=== PATIENT | male | born 1940 | race African-American/Black ===

== ENCOUNTER 2019-04-07 10:45 | Inpatient (IN) | payer MEDICARE ==
[2019-04-07 11:46] VITALS: BP 170/74
[2019-04-07] MEDS ORDERED: Magnesium Hydroxide (MOM) 30 mL UDC PO PRN (11:48)
[2019-04-07] MEDS ORDERED: Maalox 30 mL Cup PO PRN (11:48)
--- NOTE | 2019-04-07 22:35 | Psychiatric Evaluation ---
DATE OF SERVICE: 04/07/2019 IDENTIFYING DATA: The patient is a 79-year-old -[place] male, living by himself. Information obtained by directly interviewing the patient as well as reviewing the admission papers and they are reliable. JUSTIFICATION OF HOSPITALIZATION: The patient is a 5150 as a danger to self and being gravely disabled. HISTORY OF PRESENT ILLNESS: Per the information obtained, the patient has been brought to the [facility], patient is reported to have been diagnosed as schizophrenia and had been on Haldol, but is noncompliant to the medication. The patient is reported to have been diagnosed to have hypertension, hyperlipidemia, but is not willing to comply with the treatment. The patient has been getting easily agitated, confused, and the slab depiler operator has mentioned that the patient has been going down and wanted the patient to be hospitalized for stabilization. PAST PSYCHIATRIC HISTORY: Details are not known. MEDICAL HISTORY: Physical examination is requested by Dr. Branch. SUBSTANCE ABUSE HISTORY: None. PHYSICAL OR SEXUAL ABUSE HISTORY: None. LEGAL PROBLEMS: None at this time. MENTAL STATUS EXAMINATION: The patient is a 79-year-old, looking his stated age, superficially cooperative. Eye contact is poor. Mood is noted to be irritable. Affect is constricted. Insight and judgment at this time are noted to be very much impaired. Impulse control is noted to be poor. The patient is getting easily agitated. The patient's coping skills are noted to be very poor. The patient has paranoid delusions, but denies any command hallucinations. Attention span and concentration noted to be poor. Short and long-term are noted to be poor. The patient's behavior is equally danger to self at this time and the patient is also gravely disabled. DIAGNOSES: AXIS I: Schizophrenia, chronic, paranoid type. AXIS II: None. AXIS III: As per Dr. Branch. IMMEDIATE TREATMENT PLAN: The patient is going to be observed on inpatient unit, provided with supportive psychotherapy. The patient is going to be closely monitored. Once stabilized, the patient is going to be discharged to [facility] to be followed up on an outpatient basis. JOB# [id number]
--- NOTE | 2019-04-07 22:38 | History & Physical ---
ADMIT DATE: 04/07/2019 HISTORY OF PRESENT ILLNESS: The patient is a 79-year-old male with long history of dementia, degenerative joint disease, admitted to [facility] under Dr. Bowen's service. No fever, no chills, no fever, no chest pain, no shortness of breath. PAST MEDICAL HISTORY: Significant for dementia, psychosis and degenerative joint disease. PAST SURGICAL HISTORY: No recent surgery. ALLERGIES: None. MEDICATIONS: Follow admission reconciliation. SOCIAL HISTORY: No smoking, no alcohol, no drug. FAMILY HISTORY: Noncontributory. REVIEW OF SYSTEMS: RENAL SYSTEM: No history of chronic renal disorder. CARDIOVASCULAR SYSTEM: No coronary artery disease. ENDOCRINE SYSTEM: No diabetes or thyroid problem. GASTROINTESTINAL SYSTEM: No upper or lower gastrointestinal bleed. NEUROLOGICAL SYSTEM: No seizure disorder. SKELETOMUSCULAR SYSTEM: No muscular dystrophy. HEMATOLOGICAL SYSTEM: No bleeding tendencies. RESPIRATORY SYSTEM: No asthma. GENITOURINARY: No dysuria or hematuria. PHYSICAL EXAMINATION: GENERAL: He is awake, alert, not coherent. VITAL SIGNS: Temperature is 96.5, heart rate 85, blood pressure 156/77. HEENT: Normocephalic. Pupils reactive to light and accommodation. Sclerae clear. NECK: Supple. Negative for lymphadenopathy, JVD or bruit. CHEST: Entry of air bilaterally normal. No rhonchi or wheezing. HEART: S1, S2 normal. No gallop rhythm. ABDOMEN: Soft, bowel sounds positive. EXTREMITIES: No edema. NEUROLOGIC: Awake, not coherent. No focal muscle deficits. Cranial nerves 2-12 are intact. ASSESSMENT: 1. Hypertension. 2. Degenerative joint disease. 3. Dementia. 4. Psychosis. PLAN: The patient admitted to the hospital under Dr. Bowen's service. Medical problems addressed during hospitalization is psychosis. Medical problems addressed at discharge are hypertension, dementia, degenerative joint disease. The patient is medically stable for activity. Thank you, Dr. Bowen, for asking me to see your patient. The patient will follow up with primary physician upon discharge. The patient is a full code. JOB# [id number]
[2019-04-08] MEDS: Multivitamin Tab PO SCH (09:40)
--- NOTE | 2019-04-08 21:03 | Internal Medicine Prog Note ---
Internal Medicine Subjective - Subjective Service Date: 04/08/19 Patient seen and examined:: with staff (HE IS CONFUSED) Patient is:: awake, non-verbal, in bed, confused Per staff patient has:: no adverse event Internal Medicine Objective - Physical Exam Vitals and I&O: Vital Signs Temp 98.1 F 04/08/19 19:56 Pulse 78 04/08/19 19:56 Resp 20 04/08/19 19:56 BP 111/54 04/08/19 19:56 Pulse Ox 97 04/08/19 19:56 Intake & Output 04/08/19 04/08/19 04/09/19 06:59 18:59 06:59 Intake Total 240 960 240 Balance 240 960 240 Intake: Oral 240 960 240 Other: # Voids 2 4 1 # Bowel Movements 0 0 Active Medications: Current Medications Acetaminophen (Tylenol) 650 mg PO Q4HR PRN PRN Reason: Mild Pain (Scale 1-3) Stop: 06/06/19 11:47 Acetaminophen (Tylenol) 650 mg PO Q4H PRN PRN Reason: TEMP ABOVE 100 Stop: 06/06/19 12:35 Al Hydrox/Mg Hydrox/Simethicone (Maalox) 30 ml PO Q4HR PRN PRN Reason: GI DISTRESS Stop: 06/06/19 11:47 Haloperidol (Haldol) 0.5 mg PO BID VALENTÍN; Protocol Stop: 06/07/19 08:59 Last Admin: 04/08/19 16:21 Dose: 0.5 mg Lorazepam (Ativan) 0.5 mg PO Q6HR PRN; Protocol PRN Reason: Anxiety Stop: 06/06/19 11:58 Last Admin: 04/07/19 21:29 Dose: 0.5 mg Magnesium Hydroxide (Milk Of Magnesia) 30 ml PO HS PRN PRN Reason: Constipation Multivitamins/Vitamin C (Theragran) 1 tab PO DAILY VALENTÍN Stop: 06/07/19 08:59 Last Admin: 04/08/19 09:40 Dose: 1 tab Zolpidem Tartrate (Ambien) 5 mg PO HS PRN PRN Reason: Insomnia Stop: 06/06/19 11:47 Last Admin: 04/08/19 20:31 Dose: 5 mg General: demented HEENT: NC/AT, PERRLA, EOMI, anicteric sclerae, throat clear Neck: Supple, No JVD, No thyromegaly, +2 carotid pulse wo bruit, No LAD Lungs: CTAB Cardiovascular: RRR, Normal S1, Normal S2, without murmur Abdomen: soft, non-tender, non-distended Neurological: no change Internal Medicine Assmt/Plan - Assessment Assessment: 1.HTN. 2.DJD. 3.DEMENTIA. 4.PSYCHOSIS - Plan Plan: CONTINUE ON CURRENT MEDICATION AND DIET
[2019-04-09] MEDS: Multivitamin Tab PO SCH (08:44)
--- NOTE | 2019-04-09 09:20 | Progress Notes ---
DATE: 04/08/2019 SUBJECTIVE: Staff was spoken to. The patient is interviewed. Mood is noted to be irritable. Affect is constricted. Coping skills are noted to be still poor. The patient has been having difficult time to cope with the stress. The patient is confused and has both short-term as well as long-term memory problems. No side effects to the medications are noted. The patient is currently on haloperidol 0.5 mg twice a day and is able to tolerate the medication. ASSESSMENT: The patient is still paranoid and impulsive. PLAN: To continue the patient with the supportive therapy and followup. JOB# [id number]
--- NOTE | 2019-04-09 20:55 | General Progress Note ---
Subjective - Review of Systems Service Date: 04/09/19 Subjective: resting comfortably no distress Objective - Physical Exam Vitals and I&O: Vital Signs Temp 97.5 F 04/09/19 20:04 Pulse 71 04/09/19 20:04 Resp 20 04/09/19 20:04 BP 112/53 04/09/19 20:04 Pulse Ox 97 04/09/19 20:04 Intake & Output 04/09/19 04/09/19 04/10/19 06:59 18:59 06:59 Intake Total 360 240 Balance 360 240 Intake: Oral 360 240 Other: # Voids 1 2 # Bowel Movements 0 Active Medications: Current Medications Acetaminophen (Tylenol) 650 mg PO Q4HR PRN PRN Reason: Mild Pain (Scale 1-3) Stop: 06/06/19 11:47 Acetaminophen (Tylenol) 650 mg PO Q4H PRN PRN Reason: TEMP ABOVE 100 Stop: 06/06/19 12:35 Al Hydrox/Mg Hydrox/Simethicone (Maalox) 30 ml PO Q4HR PRN PRN Reason: GI DISTRESS Stop: 06/06/19 11:47 Haloperidol (Haldol) 0.5 mg PO BID VALENTÍN; Protocol Stop: 06/07/19 08:59 Last Admin: 04/09/19 16:17 Dose: 0.5 mg Lorazepam (Ativan) 0.5 mg PO Q6HR PRN; Protocol PRN Reason: Anxiety Stop: 06/06/19 11:58 Last Admin: 04/09/19 10:49 Dose: 0.5 mg Magnesium Hydroxide (Milk Of Magnesia) 30 ml PO HS PRN PRN Reason: Constipation Multivitamins/Vitamin C (Theragran) 1 tab PO DAILY VALENTÍN Stop: 06/07/19 08:59 Last Admin: 04/09/19 08:44 Dose: 1 tab Zolpidem Tartrate (Ambien) 5 mg PO HS PRN PRN Reason: Insomnia Stop: 06/06/19 11:47 Last Admin: 04/09/19 20:43 Dose: 5 mg General: No acute distress HEENT: PERRLA, EOMI Neck: Supple, JVD, Thyromegaly Cardiovascular: Regular rate, Normal S1, Normal S2 Lungs: Clear to auscultation Abdomen: Bowel sounds, Soft Assessment/Plan - Assessment Assessment: 1.HTN. 2.DJD. 3.DEMENTIA. 4.PSYCHOSIS - Plan Plan: continue current treatment
--- NOTE | 2019-04-09 22:59 | Progress Notes ---
DATE: 04/09/2019 SUBJECTIVE: Staff was spoken to. The patient is interviewed. Mood is noted to be irritable. Affect is constricted. The patient is very confused and has been plugging the toilets with too much of the issue. The patient has no insight into his illness. The patient needs to be redirected. The patient is getting easily frustrated and angry. The patient is currently placed on the haloperidol, which she is getting at 0.5 mg b.i.d. PLAN: To continue the patient with his current medications and follow up with the supportive therapy. JOB# [id number]
[2019-04-10] MEDS: Multivitamin Tab PO SCH (08:45)
--- NOTE | 2019-04-10 13:59 | General Progress Note ---
Subjective - Review of Systems Service Date: 04/10/19 Subjective: resting comfortably no distress Objective - Physical Exam Vitals and I&O: Vital Signs Temp 97.2 F 04/10/19 05:48 Pulse 68 04/10/19 05:48 Resp 18 04/10/19 05:48 BP 147/73 04/10/19 05:48 Pulse Ox 98 04/10/19 05:48 Intake & Output 04/09/19 04/10/19 04/10/19 18:59 06:59 18:59 Intake Total 240 Balance 240 Intake: Oral 240 Other: # Voids 2 Active Medications: Current Medications Acetaminophen (Tylenol) 650 mg PO Q4HR PRN PRN Reason: Mild Pain (Scale 1-3) Stop: 06/06/19 11:47 Acetaminophen (Tylenol) 650 mg PO Q4H PRN PRN Reason: TEMP ABOVE 100 Stop: 06/06/19 12:35 Al Hydrox/Mg Hydrox/Simethicone (Maalox) 30 ml PO Q4HR PRN PRN Reason: GI DISTRESS Stop: 06/06/19 11:47 Haloperidol (Haldol) 0.5 mg PO BID VALENTÍN; Protocol Stop: 06/07/19 08:59 Last Admin: 04/10/19 08:44 Dose: 0.5 mg Lorazepam (Ativan) 0.5 mg PO Q6HR PRN; Protocol PRN Reason: Anxiety Stop: 06/06/19 11:58 Last Admin: 04/09/19 10:49 Dose: 0.5 mg Magnesium Hydroxide (Milk Of Magnesia) 30 ml PO HS PRN PRN Reason: Constipation Multivitamins/Vitamin C (Theragran) 1 tab PO DAILY VALENTÍN Stop: 06/07/19 08:59 Last Admin: 04/10/19 08:45 Dose: 1 tab Zolpidem Tartrate (Ambien) 5 mg PO HS PRN PRN Reason: Insomnia Stop: 06/06/19 11:47 Last Admin: 04/09/19 20:43 Dose: 5 mg General: No acute distress HEENT: PERRLA, EOMI Neck: Supple, JVD, Thyromegaly Cardiovascular: Regular rate, Normal S1, Normal S2 Lungs: Clear to auscultation Abdomen: Bowel sounds, Soft Assessment/Plan - Assessment Assessment: 1.HTN. 2.DJD. 3.DEMENTIA. 4.PSYCHOSIS - Plan Plan: continue current treatment
[2019-04-11] MEDS: Multivitamin Tab PO SCH (08:35)
--- NOTE | 2019-04-11 18:17 | Internal Medicine Prog Note ---
Internal Medicine Subjective - Subjective Service Date: 04/11/19 Patient seen and examined:: without staff (HE IS DOING WELL) Patient is:: awake, non-verbal, in bed, confused Per staff patient has:: no adverse event Internal Medicine Objective - Physical Exam Vitals and I&O: Vital Signs Temp 98.2 F 04/11/19 14:45 Pulse 60 04/11/19 14:45 Resp 20 04/11/19 14:45 BP 120/82 04/11/19 14:45 Pulse Ox 98 04/11/19 14:45 Intake & Output 04/10/19 04/11/19 04/11/19 18:59 06:59 18:59 Intake Total 0559 648 5854 Output Total 1 Balance 1946 758 7765 Intake: Oral 3450 189 6241 Output: Urine/Stool Mix 1 Other: # Voids 3 2 4 # Bowel Movements 1 0 1 Active Medications: Current Medications Acetaminophen (Tylenol) 650 mg PO Q4HR PRN PRN Reason: Mild Pain (Scale 1-3) Stop: 06/06/19 11:47 Acetaminophen (Tylenol) 650 mg PO Q4H PRN PRN Reason: TEMP ABOVE 100 Stop: 06/06/19 12:35 Al Hydrox/Mg Hydrox/Simethicone (Maalox) 30 ml PO Q4HR PRN PRN Reason: GI DISTRESS Stop: 06/06/19 11:47 Haloperidol (Haldol) 0.5 mg PO BID VALENTÍN; Protocol Stop: 06/07/19 08:59 Last Admin: 04/11/19 17:03 Dose: 0.5 mg Lorazepam (Ativan) 0.5 mg PO Q6HR PRN; Protocol PRN Reason: Anxiety Stop: 06/06/19 11:58 Last Admin: 04/09/19 10:49 Dose: 0.5 mg Magnesium Hydroxide (Milk Of Magnesia) 30 ml PO HS PRN PRN Reason: Constipation Multivitamins/Vitamin C (Theragran) 1 tab PO DAILY VALENTÍN Stop: 06/07/19 08:59 Last Admin: 04/11/19 08:35 Dose: 1 tab Zolpidem Tartrate (Ambien) 5 mg PO HS PRN PRN Reason: Insomnia Stop: 06/06/19 11:47 Last Admin: 04/10/19 20:29 Dose: 5 mg General: demented HEENT: NC/AT, PERRLA, EOMI, anicteric sclerae, throat clear Neck: Supple, No JVD, No thyromegaly, +2 carotid pulse wo bruit, No LAD Lungs: CTAB Cardiovascular: RRR, Normal S1, Normal S2, without murmur Abdomen: soft, non-tender, non-distended Neurological: no change Internal Medicine Assmt/Plan - Assessment Assessment: 1.HTN. 2.DJD. 3.DEMENTIA. 4.PSYCHOSIS - Plan Plan: CONTINUE ON CURRENT MEDICATION AND DIET Nutritional Asmnt/Malnutr-PDOC - Dietary Evaluation Malnutrition Findings (Please click <Entered> for more info): Nutritional Asmnt/Malnutrition Start: 04/11/19 15: 34 Text: Status: Complete Freq: Protocol: Document 04/11/19 15:34 BIPIN (Rec: 04/11/19 15:37 BIPIN [email or web address]) Nutritional Asmnt/Malnutrition Patient General Information Nutritional Screening Moderate Risk Diagnosis Psychosis Pertinent Medical Hx/Surgical Hx Maalox (PRN), MOM (PRN), Theragran Subjective Information Pt is a 79-year-old male admitted on 04/07 d/t psychosis . Pt is eating an estimated 80 % of meals x 3 days Per Meal/ Nutrition Activity Record. Dietary is currently providing an estimated 2300 kcals and 115 gm Pro, per Pt PO intake this is providing an estimated 1840 kcals and 90 gm Pro to meet 100% kcal and 100+% Pro needs. Visited pt around 2pm today, pt stated he ate all of his lunch and he has no complaints with the food. Pt stated he was taking vitamin B12 at his previous facility and was instructed it would be better to be taken off of it- currently not taking B12 at this facility. Anthropometrics HT: 62 WT: 157 LB (71.36 kg) BMI: 20.16 (Normal) GI/ Skin Integrity GI: WNL, Soft, Flat BM: Not noted I/O: 1360/1 (+1359) Skin: WNL, Intact Saleem: 18 Diet Order: Cardiac, chopped Estimated Energy Needs: ( Geriatric, CBW) 5660-1028 kcals (25-30 kcals/ kg) 70-85g Pro (1.0-1.2 g/kg) 6994-3523 ml (25-30 ml/kg) Current Diet Order/ Nutrition Support Cardiac, chopped Pertinent Medications Maalox (PRN), MOM (PRN), Theragran Pertinent Labs 04/06: K 3.3, Glucose 145, BUN/ Cr 24/1.3, Vitamin B12 1061 Nutritional Hx/Data Height 1.88 m Height (Calculated Centimeters) 188.0 Current Weight (lbs) 71.214 kg Weight (Calculated Kilograms) 71.2 Weight (Calculated Grams) 86208.0 [place] Body Weight 190 LB (86.36 kg) % [place] Body Weight 83 Body Mass Index (BMI) 20.1 Weight Status Approriate GI Symptoms Skin Integrity/Comment: Skin: WNL, Intact Saleem: 18 Current %PO Good (75-100%) Estimated Nutritional Goals BEE in Kcals: Using Current wt Calories/Kcals/Kg 25-30 Kcals Calculated 4051-0787 Protein: Using Current wt Protein g/k.0-1.2 Protein Calculated 70-85 Fluid: ml 2664-4178 ml (25-30 ml/kg) Nutritional Problem No current Nutrition Prob Problem No nutrition diagnosis at this time. Etiology N/A Signs/Symptoms: N/A Malnutrition Related to Morbid Obesity Malnutrition related to morbid obesity No Intervention/Recommendation Comments Continue Cardiac, chopped diet as tolerated. Expected Outcomes/Goals Expected Outcomes/Goals 1. PO intake to continue to meet> 75% of estimated nutritional needs. 2. Monitor PO intake, wt, nutrition related labs, and skin integrity. 3. F/U as low risk in 7-10 days, 04/18-04/21
--- NOTE | 2019-04-12 02:43 | Progress Notes ---
DATE: 04/10/2019 PSYCHIATRIC PROGRESS NOTE SUBJECTIVE: Staff was spoken to. The patient is interviewed. Mood is noted to be irritable. Affect is constricted. The patient is going on a tangent. The patient has no insight into his illness. Coping skills are noted to be very poor. The patient has been isolative and withdrawn. The patient is getting confused, more towards the end of the day. The patient is currently on haloperidol and is able to tolerate the medication. ASSESSMENT: The patient is still psychotic and impulsive. PLAN: To continue the patient with the supportive therapy and followup. JOB# [id number]
[2019-04-12] MEDS: Multivitamin Tab PO SCH (09:15)
--- NOTE | 2019-04-12 21:14 | Internal Medicine Prog Note ---
Internal Medicine Subjective - Subjective Service Date: 04/12/19 Patient seen and examined:: without staff (HE IS DOING BETTER) Patient is:: awake, non-verbal, in bed, confused Per staff patient has:: no adverse event Internal Medicine Objective - Physical Exam Vitals and I&O: Vital Signs Temp 97.7 F 04/12/19 20:25 Pulse 77 04/12/19 20:25 Resp 18 04/12/19 20:25 BP 100/56 04/12/19 20:25 Pulse Ox 99 04/12/19 20:25 Intake & Output 04/12/19 04/12/19 04/13/19 06:59 18:59 06:59 Intake Total 240 120 Balance 240 120 Intake: Oral 240 120 Other: # Voids 2 3 2 # Bowel Movements 1 0 Active Medications: Current Medications Acetaminophen (Tylenol) 650 mg PO Q4HR PRN PRN Reason: Mild Pain (Scale 1-3) Stop: 06/06/19 11:47 Acetaminophen (Tylenol) 650 mg PO Q4H PRN PRN Reason: TEMP ABOVE 100 Stop: 06/06/19 12:35 Al Hydrox/Mg Hydrox/Simethicone (Maalox) 30 ml PO Q4HR PRN PRN Reason: GI DISTRESS Stop: 06/06/19 11:47 Haloperidol (Haldol) 1 mg PO BID VALENTÍN; Protocol Stop: 06/12/19 08:59 Lorazepam (Ativan) 0.5 mg PO Q6HR PRN; Protocol PRN Reason: Anxiety Stop: 06/06/19 11:58 Last Admin: 04/11/19 19:46 Dose: 0.5 mg Magnesium Hydroxide (Milk Of Magnesia) 30 ml PO HS PRN PRN Reason: Constipation Multivitamins/Vitamin C (Theragran) 1 tab PO DAILY VALENTÍN Stop: 06/07/19 08:59 Last Admin: 04/12/19 09:15 Dose: 1 tab Zolpidem Tartrate (Ambien) 5 mg PO HS PRN PRN Reason: Insomnia Stop: 06/06/19 11:47 Last Admin: 04/11/19 20:47 Dose: 5 mg General: demented HEENT: NC/AT, PERRLA, EOMI, anicteric sclerae, throat clear Neck: Supple, No JVD, No thyromegaly, +2 carotid pulse wo bruit, No LAD Lungs: CTAB Cardiovascular: RRR, Normal S1, Normal S2, without murmur Abdomen: soft, non-tender, non-distended Neurological: no change Internal Medicine Assmt/Plan - Assessment Assessment: 1.HTN. 2.DJD. 3.DEMENTIA. 4.PSYCHOSIS - Plan Plan: CONTINUE ON CURRENT MEDICATION AND DIET Nutritional Asmnt/Malnutr-PDOC - Dietary Evaluation Malnutrition Findings (Please click <Entered> for more info): Nutritional Asmnt/Malnutrition Start: 04/11/19 15: 34 Text: Status: Complete Freq: Protocol: Document 04/11/19 15:34 FRANCESCAROSARIOAUDI (Rec: 04/11/19 15:37 [email or web address]) Nutritional Asmnt/Malnutrition Patient General Information Nutritional Screening Moderate Risk Diagnosis Psychosis Pertinent Medical Hx/Surgical Hx Maalox (PRN), MOM (PRN), Theragran Subjective Information Pt is a 79-year-old male admitted on 04/07 d/t psychosis . Pt is eating an estimated 80 % of meals x 3 days Per Meal/ Nutrition Activity Record. Dietary is currently providing an estimated 2300 kcals and 115 gm Pro, per Pt PO intake this is providing an estimated 1840 kcals and 90 gm Pro to meet 100% kcal and 100+% Pro needs. Visited pt around 2pm today, pt stated he ate all of his lunch and he has no complaints with the food. Pt stated he was taking vitamin B12 at his previous facility and was instructed it would be better to be taken off of it- currently not taking B12 at this facility. Anthropometrics HT: 62 WT: 157 LB (71.36 kg) BMI: 20.16 (Normal) GI/ Skin Integrity GI: WNL, Soft, Flat BM: Not noted I/O: 1360/1 (+1359) Skin: WNL, Intact Saleem: 18 Diet Order: Cardiac, chopped Estimated Energy Needs: ( Geriatric, CBW) 6294-1071 kcals (25-30 kcals/ kg) 70-85g Pro (1.0-1.2 g/kg) 7526-3470 ml (25-30 ml/kg) Current Diet Order/ Nutrition Support Cardiac, chopped Pertinent Medications Maalox (PRN), MOM (PRN), Theragran Pertinent Labs 12/4: K 3.3, Glucose 145, BUN/ Cr 24/1.3, Vitamin B12 1061 Nutritional Hx/Data Height 1.88 m Height (Calculated Centimeters) 188.0 Current Weight (lbs) 71.214 kg Weight (Calculated Kilograms) 71.2 Weight (Calculated Grams) 85035.0 [place] Body Weight 190 LB (86.36 kg) % [place] Body Weight 83 Body Mass Index (BMI) 20.1 Weight Status Approriate GI Symptoms Skin Integrity/Comment: Skin: WNL, Intact Saleem: 18 Current %PO Good (75-100%) Estimated Nutritional Goals BEE in Kcals: Using Current wt Calories/Kcals/Kg 25-30 Kcals Calculated 6431-0478 Protein: Using Current wt Protein g/k.0-1.2 Protein Calculated 70-85 Fluid: ml 0227-8267 ml (25-30 ml/kg) Nutritional Problem No current Nutrition Prob Problem No nutrition diagnosis at this time. Etiology N/A Signs/Symptoms: N/A Malnutrition Related to Morbid Obesity Malnutrition related to morbid obesity No Intervention/Recommendation Comments Continue Cardiac, chopped diet as tolerated. Expected Outcomes/Goals Expected Outcomes/Goals 1. PO intake to continue to meet> 75% of estimated nutritional needs. 2. Monitor PO intake, wt, nutrition related labs, and skin integrity. 3. F/U as low risk in 7-10 days, 04/18-04/21
--- NOTE | 2019-04-13 02:50 | Progress Notes ---
DATE: 04/12/2019 PSYCHIATRIC PROGRESS NOTE SUBJECTIVE: Staff was spoken to. The patient is interviewed. Mood is noted to be irritable. Affect is constricted. Insight and judgment at this time are noted to be impaired. Impulse control is noted to be limited. Coping skills are noted to be limited. The patient is getting easily frustrated. The patient is currently on 0.5 mg of the haloperidol and has been able to tolerate the medication, but the patient continues to be very paranoid. Coping skills are noted to be extremely poor. No side effects to the medications are noted. In view of the paranoia and aggressive behavior, it is decided to increase the dose on the haloperidol to 1 mg twice a day. I encouraged the patient to verbalize the concerns rather than to act out. The patient is going to be closely monitored for any EPS. JOB# [id number]
[2019-04-13] MEDS: Multivitamin Tab PO SCH (09:29)
--- NOTE | 2019-04-13 23:16 | Internal Medicine Prog Note ---
Internal Medicine Subjective - Subjective Service Date: 04/13/19 Patient seen and examined:: without staff (HE IS DOING WELL) Patient is:: awake, non-verbal, in bed, confused Per staff patient has:: no adverse event Internal Medicine Objective - Physical Exam Vitals and I&O: Vital Signs Temp 98.0 F 04/13/19 20:45 Pulse 67 04/13/19 20:45 Resp 20 04/13/19 20:45 BP 124/76 04/13/19 20:45 Pulse Ox 98 04/13/19 20:45 Intake & Output 04/13/19 04/13/19 04/14/19 06:59 18:59 06:59 Intake Total 240 900 120 Balance 240 900 120 Intake: Oral 240 900 120 Other: # Voids 3 2 # Bowel Movements 1 0 Active Medications: Current Medications Acetaminophen (Tylenol) 650 mg PO Q4HR PRN PRN Reason: Mild Pain (Scale 1-3) Stop: 06/06/19 11:47 Acetaminophen (Tylenol) 650 mg PO Q4H PRN PRN Reason: TEMP ABOVE 100 Stop: 06/06/19 12:35 Al Hydrox/Mg Hydrox/Simethicone (Maalox) 30 ml PO Q4HR PRN PRN Reason: GI DISTRESS Stop: 06/06/19 11:47 Haloperidol (Haldol) 1 mg PO BID VALENTÍN; Protocol Stop: 06/12/19 08:59 Last Admin: 04/13/19 17:02 Dose: 1 mg Lorazepam (Ativan) 0.5 mg PO Q6HR PRN; Protocol PRN Reason: Anxiety Stop: 06/06/19 11:58 Last Admin: 04/13/19 13:00 Dose: 0.5 mg Magnesium Hydroxide (Milk Of Magnesia) 30 ml PO HS PRN PRN Reason: Constipation Multivitamins/Vitamin C (Theragran) 1 tab PO DAILY VALENTÍN Stop: 06/07/19 08:59 Last Admin: 04/13/19 09:29 Dose: 1 tab Zolpidem Tartrate (Ambien) 5 mg PO HS PRN PRN Reason: Insomnia Stop: 06/06/19 11:47 Last Admin: 04/13/19 20:51 Dose: 5 mg General: demented HEENT: NC/AT, PERRLA, EOMI, anicteric sclerae, throat clear Neck: Supple, No JVD, No thyromegaly, +2 carotid pulse wo bruit, No LAD Lungs: CTAB Cardiovascular: RRR, Normal S1, Normal S2, without murmur Abdomen: soft, non-tender, non-distended Neurological: no change Internal Medicine Assmt/Plan - Assessment Assessment: 1.HTN. 2.DJD. 3.DEMENTIA. 4.PSYCHOSIS - Plan Plan: CONTINUE ON CURRENT MEDICATION AND DIET Nutritional Asmnt/Malnutr-PDOC - Dietary Evaluation Malnutrition Findings (Please click <Entered> for more info): Nutritional Asmnt/Malnutrition Start: 04/11/19 15: 34 Text: Status: Complete Freq: Protocol: Document 04/11/19 15:34 BIPIN (Rec: 04/11/19 15:37 BIPIN [id number]) Nutritional Asmnt/Malnutrition Patient General Information Nutritional Screening Moderate Risk Diagnosis Psychosis Pertinent Medical Hx/Surgical Hx Maalox (PRN), MOM (PRN), Theragran Subjective Information Pt is a 79-year-old male admitted on 04/07 d/t psychosis . Pt is eating an estimated 80 % of meals x 3 days Per Meal/ Nutrition Activity Record. Dietary is currently providing an estimated 2300 kcals and 115 gm Pro, per Pt PO intake this is providing an estimated 1840 kcals and 90 gm Pro to meet 100% kcal and 100+% Pro needs. Visited pt around 2pm today, pt stated he ate all of his lunch and he has no complaints with the food. Pt stated he was taking vitamin B12 at his previous facility and was instructed it would be better to be taken off of it- currently not taking B12 at this facility. Anthropometrics HT: 62 WT: 157 LB (71.36 kg) BMI: 20.16 (Normal) GI/ Skin Integrity GI: WNL, Soft, Flat BM: Not noted I/O: 1360/1 (+1359) Skin: WNL, Intact Saleem: 18 Diet Order: Cardiac, chopped Estimated Energy Needs: ( Geriatric, CBW) 8475-4720 kcals (25-30 kcals/ kg) 70-85g Pro (1.0-1.2 g/kg) 4439-8072 ml (25-30 ml/kg) Current Diet Order/ Nutrition Support Cardiac, chopped Pertinent Medications Maalox (PRN), MOM (PRN), Theragran Pertinent Labs 04/06: K 3.3, Glucose 145, BUN/ Cr 24/1.3, Vitamin B12 1061 Nutritional Hx/Data Height 1.88 m Height (Calculated Centimeters) 188.0 Current Weight (lbs) 71.214 kg Weight (Calculated Kilograms) 71.2 Weight (Calculated Grams) 24600.0 [place] Body Weight 190 LB (86.36 kg) % [place] Body Weight 83 Body Mass Index (BMI) 20.1 Weight Status Approriate GI Symptoms Skin Integrity/Comment: Skin: WNL, Intact Saleem: 18 Current %PO Good (75-100%) Estimated Nutritional Goals BEE in Kcals: Using Current wt Calories/Kcals/Kg 25-30 Kcals Calculated 9105-3943 Protein: Using Current wt Protein g/k.0-1.2 Protein Calculated 70-85 Fluid: ml 0317-7235 ml (25-30 ml/kg) Nutritional Problem No current Nutrition Prob Problem No nutrition diagnosis at this time. Etiology N/A Signs/Symptoms: N/A Malnutrition Related to Morbid Obesity Malnutrition related to morbid obesity No Intervention/Recommendation Comments Continue Cardiac, chopped diet as tolerated. Expected Outcomes/Goals Expected Outcomes/Goals 1. PO intake to continue to meet> 75% of estimated nutritional needs. 2. Monitor PO intake, wt, nutrition related labs, and skin integrity. 3. F/U as low risk in 7-10 days, 04/18-04/21
--- NOTE | 2019-04-14 01:38 | Progress Notes ---
DATE: 04/13/2019 PSYCHIATRIC PROGRESS NOTE SUBJECTIVE: Staff was spoken to. The patient is interviewed. Mood is irritable. Affect is constricted. Coping skills are noted to be still poor. The patient is isolative and withdrawn. The patient is very confused and disoriented. The patient is going on a tangent. The patient gets easily frustrated when redirected. No insight into his illness is noted. Short and long-term memory are noted to be very poor. The patient is currently on haloperidol and has been able to tolerate the medication. ASSESSMENT: The patient is still paranoid and impulsive. PLAN: To continue the patient with the current medications and followup. JOB# [id number]
[2019-04-14] MEDS: Multivitamin Tab PO SCH (08:20)
--- NOTE | 2019-04-14 15:40 | Internal Medicine Prog Note ---
Internal Medicine Subjective - Subjective Service Date: 04/14/19 Patient seen and examined:: without staff (HE IS DOING GOOD) Patient is:: awake, non-verbal, in bed, confused Per staff patient has:: no adverse event Internal Medicine Objective - Physical Exam Vitals and I&O: Vital Signs Temp 97.4 F 04/14/19 14:00 Pulse 71 04/14/19 14:00 Resp 20 04/14/19 14:00 BP 107/45 04/14/19 14:00 Pulse Ox 99 04/14/19 14:00 Intake & Output 04/13/19 04/14/19 04/14/19 18:59 06:59 18:59 Intake Total 900 240 Balance 900 240 Intake: Oral 900 240 Other: # Voids 2 # Bowel Movements 1 Active Medications: Current Medications Acetaminophen (Tylenol) 650 mg PO Q4HR PRN PRN Reason: Mild Pain (Scale 1-3) Stop: 06/06/19 11:47 Acetaminophen (Tylenol) 650 mg PO Q4H PRN PRN Reason: TEMP ABOVE 100 Stop: 06/06/19 12:35 Al Hydrox/Mg Hydrox/Simethicone (Maalox) 30 ml PO Q4HR PRN PRN Reason: GI DISTRESS Stop: 06/06/19 11:47 Haloperidol (Haldol) 1 mg PO BID VALENTÍN; Protocol Stop: 06/12/19 08:59 Last Admin: 04/14/19 08:20 Dose: 1 mg Lorazepam (Ativan) 0.5 mg PO Q6HR PRN; Protocol PRN Reason: Anxiety Stop: 06/06/19 11:58 Last Admin: 04/13/19 13:00 Dose: 0.5 mg Magnesium Hydroxide (Milk Of Magnesia) 30 ml PO HS PRN PRN Reason: Constipation Multivitamins/Vitamin C (Theragran) 1 tab PO DAILY VALENTÍN Stop: 06/07/19 08:59 Last Admin: 04/14/19 08:20 Dose: 1 tab Zolpidem Tartrate (Ambien) 5 mg PO HS PRN PRN Reason: Insomnia Stop: 06/06/19 11:47 Last Admin: 04/13/19 20:51 Dose: 5 mg General: demented HEENT: NC/AT, PERRLA, EOMI, anicteric sclerae, throat clear Neck: Supple, No JVD, No thyromegaly, +2 carotid pulse wo bruit, No LAD Lungs: CTAB Cardiovascular: RRR, Normal S1, Normal S2, without murmur Abdomen: soft, non-tender, non-distended Neurological: no change Internal Medicine Assmt/Plan - Assessment Assessment: 1.HTN. 2.DJD. 3.DEMENTIA. 4.PSYCHOSIS - Plan Plan: CONTINUE ON CURRENT MEDICATION AND DIET Nutritional Asmnt/Malnutr-PDOC - Dietary Evaluation Malnutrition Findings (Please click <Entered> for more info): Nutritional Asmnt/Malnutrition Start: 04/11/19 15: 34 Text: Status: Complete Freq: Protocol: Document 04/11/19 15:34 BIPIN (Rec: 04/11/19 15:37 BIPIN [email or web address]) Nutritional Asmnt/Malnutrition Patient General Information Nutritional Screening Moderate Risk Diagnosis Psychosis Pertinent Medical Hx/Surgical Hx Maalox (PRN), MOM (PRN), Theragran Subjective Information Pt is a 79-year-old male admitted on 04/07 d/t psychosis . Pt is eating an estimated 80 % of meals x 3 days Per Meal/ Nutrition Activity Record. Dietary is currently providing an estimated 2300 kcals and 115 gm Pro, per Pt PO intake this is providing an estimated 1840 kcals and 90 gm Pro to meet 100% kcal and 100+% Pro needs. Visited pt around 2pm today, pt stated he ate all of his lunch and he has no complaints with the food. Pt stated he was taking vitamin B12 at his previous facility and was instructed it would be better to be taken off of it- currently not taking B12 at this facility. Anthropometrics HT: 62 WT: 157 LB (71.36 kg) BMI: 20.16 (Normal) GI/ Skin Integrity GI: WNL, Soft, Flat BM: Not noted I/O: 1360/1 (+1359) Skin: WNL, Intact Saleem: 18 Diet Order: Cardiac, chopped Estimated Energy Needs: ( Geriatric, CBW) 2416-5572 kcals (25-30 kcals/ kg) 70-85g Pro (1.0-1.2 g/kg) 9896-9532 ml (25-30 ml/kg) Current Diet Order/ Nutrition Support Cardiac, chopped Pertinent Medications Maalox (PRN), MOM (PRN), Theragran Pertinent Labs 04/06: K 3.3, Glucose 145, BUN/ Cr 24/1.3, Vitamin B12 1061 Nutritional Hx/Data Height 1.88 m Height (Calculated Centimeters) 188.0 Current Weight (lbs) 71.214 kg Weight (Calculated Kilograms) 71.2 Weight (Calculated Grams) 07133.0 [place] Body Weight 190 LB (86.36 kg) % [place] Body Weight 83 Body Mass Index (BMI) 20.1 Weight Status Approriate GI Symptoms Skin Integrity/Comment: Skin: WNL, Intact Saleem: 18 Current %PO Good (75-100%) Estimated Nutritional Goals BEE in Kcals: Using Current wt Calories/Kcals/Kg 25-30 Kcals Calculated 7229-5845 Protein: Using Current wt Protein g/k.0-1.2 Protein Calculated 70-85 Fluid: ml 8641-5702 ml (25-30 ml/kg) Nutritional Problem No current Nutrition Prob Problem No nutrition diagnosis at this time. Etiology N/A Signs/Symptoms: N/A Malnutrition Related to Morbid Obesity Malnutrition related to morbid obesity No Intervention/Recommendation Comments Continue Cardiac, chopped diet as tolerated. Expected Outcomes/Goals Expected Outcomes/Goals 1. PO intake to continue to meet> 75% of estimated nutritional needs. 2. Monitor PO intake, wt, nutrition related labs, and skin integrity. 3. F/U as low risk in 7-10 days, 04/18-04/21
--- NOTE | 2019-04-14 23:18 | Progress Notes ---
DATE: 04/14/2019 SUBJECTIVE: Staff was spoken to. The patient is interviewed. Mood is noted to be irritable. Affect is constricted. Insight and judgment are noted to be still impaired. Impulse control is noted to be limited. Coping skills are noted to be limited. No side effects to the medications are noted. The patient is still isolative and withdrawn. The patient has been having difficult time to cope with the stress. The patient is having paranoid delusions and gets easily irritable. No side effects to the medications are noted at this time. ASSESSMENT: The patient is still grossly psychotic. Plan to continue the patient with supportive therapy, encouraged the patient to verbalize the concerns with the staff members. The comp field case manager has been trying to coordinate the care of the patient with the [facility]. The patient is reported to have been not compliant with the medication at least for the past couple of months. PLAN: To closely monitor the patient and followup. JOB# [id number]
[2019-04-15] MEDS: Multivitamin Tab PO SCH (08:33)
--- NOTE | 2019-04-15 18:06 | Internal Medicine Prog Note ---
Internal Medicine Subjective - Subjective Service Date: 04/15/19 Patient seen and examined:: without staff (HE IS DOING WELL) Patient is:: awake, non-verbal, in bed, confused Per staff patient has:: no adverse event Internal Medicine Objective - Physical Exam Vitals and I&O: Vital Signs Temp 97.4 F 04/15/19 14:00 Pulse 69 04/15/19 14:00 Resp 18 04/15/19 14:00 BP 133/62 04/15/19 14:00 Pulse Ox 100 04/15/19 14:00 Intake & Output 04/14/19 04/15/19 04/15/19 18:59 06:59 18:59 Intake Total 8372 713 3699 Balance 5301 378 3509 Intake: Oral 6769 008 1525 Other: # Voids 2 # Bowel Movements 3 1 1 Active Medications: Current Medications Acetaminophen (Tylenol) 650 mg PO Q4HR PRN PRN Reason: Mild Pain (Scale 1-3) Stop: 06/06/19 11:47 Acetaminophen (Tylenol) 650 mg PO Q4H PRN PRN Reason: TEMP ABOVE 100 Stop: 06/06/19 12:35 Al Hydrox/Mg Hydrox/Simethicone (Maalox) 30 ml PO Q4HR PRN PRN Reason: GI DISTRESS Stop: 06/06/19 11:47 Divalproex Sodium (Depakote Dr) 125 mg PO Q12HR VALENTÍN; Protocol Stop: 06/14/19 20:59 Haloperidol (Haldol) 1 mg PO BID VALENTÍN; Protocol Stop: 06/12/19 08:59 Last Admin: 04/15/19 16:18 Dose: 1 mg Lorazepam (Ativan) 0.5 mg PO Q6HR PRN; Protocol PRN Reason: Anxiety Stop: 06/06/19 11:58 Last Admin: 04/13/19 13:00 Dose: 0.5 mg Magnesium Hydroxide (Milk Of Magnesia) 30 ml PO HS PRN PRN Reason: Constipation Multivitamins/Vitamin C (Theragran) 1 tab PO DAILY VALENTÍN Stop: 06/07/19 08:59 Last Admin: 04/15/19 08:33 Dose: 1 tab Zolpidem Tartrate (Ambien) 5 mg PO HS PRN PRN Reason: Insomnia Stop: 06/06/19 11:47 Last Admin: 04/14/19 20:48 Dose: 5 mg General: demented HEENT: NC/AT, PERRLA, EOMI, anicteric sclerae, throat clear Neck: Supple, No JVD, No thyromegaly, +2 carotid pulse wo bruit, No LAD Lungs: CTAB Cardiovascular: RRR, Normal S1, Normal S2, without murmur Abdomen: soft, non-tender, non-distended Neurological: no change Internal Medicine Assmt/Plan - Assessment Assessment: 1.HTN. 2.DJD. 3.DEMENTIA. 4.PSYCHOSIS - Plan Plan: CONTINUE ON CURRENT MEDICATION AND DIET Nutritional Asmnt/Malnutr-PDOC - Dietary Evaluation Malnutrition Findings (Please click <Entered> for more info): Nutritional Asmnt/Malnutrition Start: 04/11/19 15: 34 Text: Status: Complete Freq: Protocol: Document 04/11/19 15:34 BIPIN (Rec: 04/11/19 15:37 BIPIN [id number]) Nutritional Asmnt/Malnutrition Patient General Information Nutritional Screening Moderate Risk Diagnosis Psychosis Pertinent Medical Hx/Surgical Hx Maalox (PRN), MOM (PRN), Theragran Subjective Information Pt is a 79-year-old male admitted on 04/07 d/t psychosis . Pt is eating an estimated 80 % of meals x 3 days Per Meal/ Nutrition Activity Record. Dietary is currently providing an estimated 2300 kcals and 115 gm Pro, per Pt PO intake this is providing an estimated 1840 kcals and 90 gm Pro to meet 100% kcal and 100+% Pro needs. Visited pt around 2pm today, pt stated he ate all of his lunch and he has no complaints with the food. Pt stated he was taking vitamin B12 at his previous facility and was instructed it would be better to be taken off of it- currently not taking B12 at this facility. Anthropometrics HT: 62 WT: 157 LB (71.36 kg) BMI: 20.16 (Normal) GI/ Skin Integrity GI: WNL, Soft, Flat BM: Not noted I/O: 1360/1 (+1359) Skin: WNL, Intact Saleem: 18 Diet Order: Cardiac, chopped Estimated Energy Needs: ( Geriatric, CBW) 5467-5696 kcals (25-30 kcals/ kg) 70-85g Pro (1.0-1.2 g/kg) 4687-8669 ml (25-30 ml/kg) Current Diet Order/ Nutrition Support Cardiac, chopped Pertinent Medications Maalox (PRN), MOM (PRN), Theragran Pertinent Labs 04/06: K 3.3, Glucose 145, BUN/ Cr 24/1.3, Vitamin B12 1061 Nutritional Hx/Data Height 1.88 m Height (Calculated Centimeters) 188.0 Current Weight (lbs) 71.214 kg Weight (Calculated Kilograms) 71.2 Weight (Calculated Grams) 77938.0 [place] Body Weight 190 LB (86.36 kg) % [place] Body Weight 83 Body Mass Index (BMI) 20.1 Weight Status Approriate GI Symptoms Skin Integrity/Comment: Skin: WNL, Intact Saleem: 18 Current %PO Good (75-100%) Estimated Nutritional Goals BEE in Kcals: Using Current wt Calories/Kcals/Kg 25-30 Kcals Calculated 5258-9002 Protein: Using Current wt Protein g/k.0-1.2 Protein Calculated 70-85 Fluid: ml 6618-3951 ml (25-30 ml/kg) Nutritional Problem No current Nutrition Prob Problem No nutrition diagnosis at this time. Etiology N/A Signs/Symptoms: N/A Malnutrition Related to Morbid Obesity Malnutrition related to morbid obesity No Intervention/Recommendation Comments Continue Cardiac, chopped diet as tolerated. Expected Outcomes/Goals Expected Outcomes/Goals 1. PO intake to continue to meet> 75% of estimated nutritional needs. 2. Monitor PO intake, wt, nutrition related labs, and skin integrity. 3. F/U as low risk in 7-10 days, 04/18-04/21
--- NOTE | 2019-04-16 04:48 | Progress Notes ---
DATE: 04/15/2019 PSYCHIATRIC PROGRESS NOTE SUBJECTIVE: Staff was spoken to. The patient is interviewed. Mood is noted to be irritable. Affect is constricted. Insight is noted to be still impaired. The patient is disrobing and the patient has been plugging the toilets even however much he has been redirected. Coping skills are noted to be extremely poor at this time. The patient is confused and pacing most of the time. No side effects to the medications are noted. The patient is currently on 1 mg twice a day of haloperidol and we have added 125 mg twice a day of Depakote to contain his mood swings and aggressive behavior. PLAN: To continue the patient with the supportive therapy. I encouraged the patient to verbalize the concerns rather than to act out. JOB# [id number]
[2019-04-16] MEDS: Multivitamin Tab PO SCH (08:52)
--- NOTE | 2019-04-16 19:08 | Internal Medicine Prog Note ---
Internal Medicine Subjective - Subjective Service Date: 04/16/19 Patient seen and examined:: without staff (HE IS DOING BETTER) Patient is:: awake, non-verbal, in bed, confused Per staff patient has:: no adverse event Internal Medicine Objective - Physical Exam Vitals and I&O: Vital Signs Temp 97.1 F 04/16/19 14:00 Pulse 102 04/16/19 14:00 Resp 18 04/16/19 14:00 BP 127/57 04/16/19 14:00 Pulse Ox 96 04/16/19 14:00 Intake & Output 04/16/19 04/16/19 04/17/19 06:59 18:59 06:59 Intake Total 300 1200 Output Total 1 Balance 299 1200 Intake: Oral 300 1200 Output: Urine/Stool Mix 1 Other: # Voids 1 3 # Bowel Movements 0 0 Active Medications: Current Medications Acetaminophen (Tylenol) 650 mg PO Q4HR PRN PRN Reason: Mild Pain (Scale 1-3) Stop: 06/06/19 11:47 Acetaminophen (Tylenol) 650 mg PO Q4H PRN PRN Reason: TEMP ABOVE 100 Stop: 06/06/19 12:35 Al Hydrox/Mg Hydrox/Simethicone (Maalox) 30 ml PO Q4HR PRN PRN Reason: GI DISTRESS Stop: 06/06/19 11:47 Divalproex Sodium (Depakote Dr) 125 mg PO Q12HR VALENTÍN; Protocol Stop: 06/14/19 20:59 Last Admin: 04/16/19 08:52 Dose: 125 mg Haloperidol (Haldol) 1 mg PO BID VALENTÍN; Protocol Stop: 06/12/19 08:59 Last Admin: 04/16/19 17:38 Dose: 1 mg Lorazepam (Ativan) 0.5 mg PO Q6HR PRN; Protocol PRN Reason: Anxiety Stop: 06/06/19 11:58 Last Admin: 04/16/19 08:52 Dose: 0.5 mg Magnesium Hydroxide (Milk Of Magnesia) 30 ml PO HS PRN PRN Reason: Constipation Multivitamins/Vitamin C (Theragran) 1 tab PO DAILY VALENTÍN Stop: 06/07/19 08:59 Last Admin: 04/16/19 08:52 Dose: 1 tab Zolpidem Tartrate (Ambien) 5 mg PO HS PRN PRN Reason: Insomnia Stop: 06/06/19 11:47 Last Admin: 04/15/19 20:13 Dose: 5 mg General: demented HEENT: NC/AT, PERRLA, EOMI, anicteric sclerae, throat clear Neck: Supple, No JVD, No thyromegaly, +2 carotid pulse wo bruit, No LAD Lungs: CTAB Cardiovascular: RRR, Normal S1, Normal S2, without murmur Abdomen: soft, non-tender, non-distended Neurological: no change Internal Medicine Assmt/Plan - Assessment Assessment: 1.HTN. 2.DJD. 3.DEMENTIA. 4.PSYCHOSIS - Plan Plan: CONTINUE ON CURRENT MEDICATION AND DIET Nutritional Asmnt/Malnutr-PDOC - Dietary Evaluation Malnutrition Findings (Please click <Entered> for more info): Nutritional Asmnt/Malnutrition Start: 04/11/19 15: 34 Text: Status: Complete Freq: Protocol: Document 04/11/19 15:34 BIPIN (Rec: 04/11/19 15:37 BIPIN [id number]) Nutritional Asmnt/Malnutrition Patient General Information Nutritional Screening Moderate Risk Diagnosis Psychosis Pertinent Medical Hx/Surgical Hx Maalox (PRN), MOM (PRN), Theragran Subjective Information Pt is a 79-year-old male admitted on 04/07 d/t psychosis . Pt is eating an estimated 80 % of meals x 3 days Per Meal/ Nutrition Activity Record. Dietary is currently providing an estimated 2300 kcals and 115 gm Pro, per Pt PO intake this is providing an estimated 1840 kcals and 90 gm Pro to meet 100% kcal and 100+% Pro needs. Visited pt around 2pm today, pt stated he ate all of his lunch and he has no complaints with the food. Pt stated he was taking vitamin B12 at his previous facility and was instructed it would be better to be taken off of it- currently not taking B12 at this facility. Anthropometrics HT: 62 WT: 157 LB (71.36 kg) BMI: 20.16 (Normal) GI/ Skin Integrity GI: WNL, Soft, Flat BM: Not noted I/O: 1360/1 (+1359) Skin: WNL, Intact Saleem: 18 Diet Order: Cardiac, chopped Estimated Energy Needs: ( Geriatric, CBW) 2325-0865 kcals (25-30 kcals/ kg) 70-85g Pro (1.0-1.2 g/kg) 4391-2827 ml (25-30 ml/kg) Current Diet Order/ Nutrition Support Cardiac, chopped Pertinent Medications Maalox (PRN), MOM (PRN), Theragran Pertinent Labs 04/06: K 3.3, Glucose 145, BUN/ Cr 24/1.3, Vitamin B12 1061 Nutritional Hx/Data Height 1.88 m Height (Calculated Centimeters) 188.0 Current Weight (lbs) 71.214 kg Weight (Calculated Kilograms) 71.2 Weight (Calculated Grams) 73736.0 [place] Body Weight 190 LB (86.36 kg) % [place] Body Weight 83 Body Mass Index (BMI) 20.1 Weight Status Approriate GI Symptoms Skin Integrity/Comment: Skin: WNL, Intact Saleem: 18 Current %PO Good (75-100%) Estimated Nutritional Goals BEE in Kcals: Using Current wt Calories/Kcals/Kg 25-30 Kcals Calculated 3842-5469 Protein: Using Current wt Protein g/k.0-1.2 Protein Calculated 70-85 Fluid: ml 9859-9408 ml (25-30 ml/kg) Nutritional Problem No current Nutrition Prob Problem No nutrition diagnosis at this time. Etiology N/A Signs/Symptoms: N/A Malnutrition Related to Morbid Obesity Malnutrition related to morbid obesity No Intervention/Recommendation Comments Continue Cardiac, chopped diet as tolerated. Expected Outcomes/Goals Expected Outcomes/Goals 1. PO intake to continue to meet> 75% of estimated nutritional needs. 2. Monitor PO intake, wt, nutrition related labs, and skin integrity. 3. F/U as low risk in 7-10 days, 04/18-04/21
[2019-04-17] MEDS: Multivitamin Tab PO SCH (08:38)
--- NOTE | 2019-04-17 20:23 | Internal Medicine Prog Note ---
Internal Medicine Subjective - Subjective Service Date: 04/17/19 Patient seen and examined:: without staff (HE IS DOING WELL) Patient is:: awake, non-verbal, in bed, confused Per staff patient has:: no adverse event Internal Medicine Objective - Physical Exam Vitals and I&O: Vital Signs Temp 97.2 F 04/17/19 14:00 Pulse 79 04/17/19 14:00 Resp 20 04/17/19 14:00 BP 133/81 04/17/19 14:00 Pulse Ox 96 04/17/19 14:00 Intake & Output 04/17/19 04/17/19 04/18/19 06:59 18:59 06:59 Intake Total 120 900 Balance 120 900 Intake: Oral 120 900 Other: # Voids 3 3 # Bowel Movements 1 Active Medications: Current Medications Acetaminophen (Tylenol) 650 mg PO Q4HR PRN PRN Reason: Mild Pain (Scale 1-3) Stop: 06/06/19 11:47 Acetaminophen (Tylenol) 650 mg PO Q4H PRN PRN Reason: TEMP ABOVE 100 Stop: 06/06/19 12:35 Al Hydrox/Mg Hydrox/Simethicone (Maalox) 30 ml PO Q4HR PRN PRN Reason: GI DISTRESS Stop: 06/06/19 11:47 Divalproex Sodium (Depakote Dr) 250 mg PO Q12HR VALENTÍN; Protocol Stop: 06/16/19 20:59 Haloperidol (Haldol) 1 mg PO BID VALENTÍN; Protocol Stop: 06/12/19 08:59 Last Admin: 04/17/19 16:29 Dose: 1 mg Lorazepam (Ativan) 0.5 mg PO Q6HR PRN; Protocol PRN Reason: Anxiety Stop: 06/06/19 11:58 Last Admin: 04/16/19 08:52 Dose: 0.5 mg Magnesium Hydroxide (Milk Of Magnesia) 30 ml PO HS PRN PRN Reason: Constipation Multivitamins/Vitamin C (Theragran) 1 tab PO DAILY VALENTÍN Stop: 06/07/19 08:59 Last Admin: 04/17/19 08:38 Dose: 1 tab Zolpidem Tartrate (Ambien) 5 mg PO HS PRN PRN Reason: Insomnia Stop: 06/06/19 11:47 Last Admin: 04/16/19 21:31 Dose: 5 mg General: demented HEENT: NC/AT, PERRLA, EOMI, anicteric sclerae, throat clear Neck: Supple, No JVD, No thyromegaly, +2 carotid pulse wo bruit, No LAD Lungs: CTAB Cardiovascular: RRR, Normal S1, Normal S2, without murmur Abdomen: soft, non-tender, non-distended Neurological: no change Internal Medicine Assmt/Plan - Assessment Assessment: 1.HTN. 2.DJD. 3.DEMENTIA. 4.PSYCHOSIS - Plan Plan: CONTINUE ON CURRENT MEDICATION AND DIET Nutritional Asmnt/Malnutr-PDOC - Dietary Evaluation Malnutrition Findings (Please click <Entered> for more info): Nutritional Asmnt/Malnutrition Start: 04/11/19 15: 34 Text: Status: Complete Freq: Protocol: Document 04/11/19 15:34 BIPIN (Rec: 04/11/19 15:37 BIPIN [email or web address]) Nutritional Asmnt/Malnutrition Patient General Information Nutritional Screening Moderate Risk Diagnosis Psychosis Pertinent Medical Hx/Surgical Hx Maalox (PRN), MOM (PRN), Theragran Subjective Information Pt is a 79-year-old male admitted on 04/07 d/t psychosis . Pt is eating an estimated 80 % of meals x 3 days Per Meal/ Nutrition Activity Record. Dietary is currently providing an estimated 2300 kcals and 115 gm Pro, per Pt PO intake this is providing an estimated 1840 kcals and 90 gm Pro to meet 100% kcal and 100+% Pro needs. Visited pt around 2pm today, pt stated he ate all of his lunch and he has no complaints with the food. Pt stated he was taking vitamin B12 at his previous facility and was instructed it would be better to be taken off of it- currently not taking B12 at this facility. Anthropometrics HT: 62 WT: 157 LB (71.36 kg) BMI: 20.16 (Normal) GI/ Skin Integrity GI: WNL, Soft, Flat BM: Not noted I/O: 1360/1 (+1359) Skin: WNL, Intact Saleem: 18 Diet Order: Cardiac, chopped Estimated Energy Needs: ( Geriatric, CBW) 5835-3297 kcals (25-30 kcals/ kg) 70-85g Pro (1.0-1.2 g/kg) 0585-2007 ml (25-30 ml/kg) Current Diet Order/ Nutrition Support Cardiac, chopped Pertinent Medications Maalox (PRN), MOM (PRN), Theragran Pertinent Labs 04/06: K 3.3, Glucose 145, BUN/ Cr 24/1.3, Vitamin B12 1061 Nutritional Hx/Data Height 1.88 m Height (Calculated Centimeters) 188.0 Current Weight (lbs) 71.214 kg Weight (Calculated Kilograms) 71.2 Weight (Calculated Grams) 01155.0 [place] Body Weight 190 LB (86.36 kg) % [place] Body Weight 83 Body Mass Index (BMI) 20.1 Weight Status Approriate GI Symptoms Skin Integrity/Comment: Skin: WNL, Intact Saleem: 18 Current %PO Good (75-100%) Estimated Nutritional Goals BEE in Kcals: Using Current wt Calories/Kcals/Kg 25-30 Kcals Calculated 8585-8781 Protein: Using Current wt Protein g/k.0-1.2 Protein Calculated 70-85 Fluid: ml 6437-3031 ml (25-30 ml/kg) Nutritional Problem No current Nutrition Prob Problem No nutrition diagnosis at this time. Etiology N/A Signs/Symptoms: N/A Malnutrition Related to Morbid Obesity Malnutrition related to morbid obesity No Intervention/Recommendation Comments Continue Cardiac, chopped diet as tolerated. Expected Outcomes/Goals Expected Outcomes/Goals 1. PO intake to continue to meet> 75% of estimated nutritional needs. 2. Monitor PO intake, wt, nutrition related labs, and skin integrity. 3. F/U as low risk in 7-10 days, 04/18-04/21
--- NOTE | 2019-04-18 08:04 | Progress Notes ---
DATE: 04/17/2019 SUBJECTIVE: Staff was spoken to. The patient is interviewed. Mood is noted to be irritable. Affect is constricted. The patient is getting easily agitated. Insight and judgment are noted to be very much impaired. Coping skills are noted to be very poor. The patient has been still very focused on plugging the toilets. The patient has no insight into his illness. ASSESSMENT: The patient is still impulsive and paranoid and confused. PLAN: To continue the patient with the supportive therapy, encouraged the patient to verbalize the concerns rather than to act out. JOB# [id number]
--- NOTE | 2019-04-18 08:04 | Progress Notes ---
DATE: 04/16/2019 PSYCHIATRIC PROGRESS NOTE SUBJECTIVE: Staff was spoken to. The patient is interviewed. Mood is noted to be irritable. Affect is constricted. The patient is confused and disoriented. The patient has to be redirected. The patient has been disrobing and has been trying to plug the toilets and has been putting everything that he can find in the toilet bowl. The patient needs to be pulled away from the bathroom. The patient has no insight into his illness, gets easily irritated when redirected. Paranoid delusions are noted. The patient is currently on the haloperidol and Depakote has been added yesterday to contain the aggressive behavior. PLAN: To continue the patient with the supportive therapy and followup. JOB# [id number]
[2019-04-18] MEDS: Multivitamin Tab PO SCH (08:08)
--- NOTE | 2019-04-18 20:54 | Internal Medicine Prog Note ---
Internal Medicine Subjective - Subjective Service Date: 04/18/19 Patient seen and examined:: without staff (HE IS CONFUSED) Patient is:: awake, non-verbal, in bed, confused Per staff patient has:: no adverse event Internal Medicine Objective - Physical Exam Vitals and I&O: Vital Signs Temp 97.8 F 04/18/19 20:37 Pulse 77 04/18/19 20:37 Resp 19 04/18/19 20:37 BP 96/60 04/18/19 20:37 Pulse Ox 96 04/18/19 20:37 Intake & Output 04/18/19 04/18/19 04/19/19 06:59 18:59 06:59 Intake Total 120 1000 240 Balance 120 1000 240 Intake: Oral 120 1000 240 Other: # Voids 3 4 1 # Bowel Movements 1 Active Medications: Current Medications Acetaminophen (Tylenol) 650 mg PO Q4HR PRN PRN Reason: Mild Pain (Scale 1-3) Stop: 06/06/19 11:47 Acetaminophen (Tylenol) 650 mg PO Q4H PRN PRN Reason: TEMP ABOVE 100 Stop: 06/06/19 12:35 Al Hydrox/Mg Hydrox/Simethicone (Maalox) 30 ml PO Q4HR PRN PRN Reason: GI DISTRESS Stop: 06/06/19 11:47 Divalproex Sodium (Depakote Dr) 250 mg PO Q12HR VALENTÍN; Protocol Stop: 06/16/19 20:59 Last Admin: 04/18/19 08:08 Dose: 250 mg Haloperidol (Haldol) 1 mg PO BID VALENTÍN; Protocol Stop: 06/12/19 08:59 Last Admin: 04/18/19 17:16 Dose: 1 mg Lorazepam (Ativan) 0.5 mg PO Q6HR PRN; Protocol PRN Reason: Anxiety Stop: 06/06/19 11:58 Last Admin: 04/16/19 08:52 Dose: 0.5 mg Magnesium Hydroxide (Milk Of Magnesia) 30 ml PO HS PRN PRN Reason: Constipation Multivitamins/Vitamin C (Theragran) 1 tab PO DAILY VALENTÍN Stop: 06/07/19 08:59 Last Admin: 04/18/19 08:08 Dose: 1 tab Zolpidem Tartrate (Ambien) 5 mg PO HS PRN PRN Reason: Insomnia Stop: 06/06/19 11:47 Last Admin: 04/16/19 21:31 Dose: 5 mg General: demented HEENT: NC/AT, PERRLA, EOMI, anicteric sclerae, throat clear Neck: Supple, No JVD, No thyromegaly, +2 carotid pulse wo bruit, No LAD Lungs: CTAB Cardiovascular: RRR, Normal S1, Normal S2, without murmur Abdomen: soft, non-tender, non-distended Neurological: no change Internal Medicine Assmt/Plan - Assessment Assessment: 1.HTN. 2.DJD. 3.DEMENTIA. 4.PSYCHOSIS - Plan Plan: CONTINUE ON CURRENT MEDICATION AND DIET Nutritional Asmnt/Malnutr-PDOC - Dietary Evaluation Malnutrition Findings (Please click <Entered> for more info): Nutritional Asmnt/Malnutrition Start: 04/11/19 15: 34 Text: Status: Complete Freq: Protocol: Document 04/11/19 15:34 BIPIN (Rec: 04/11/19 15:37 BIPIN [email or web address]) Nutritional Asmnt/Malnutrition Patient General Information Nutritional Screening Moderate Risk Diagnosis Psychosis Pertinent Medical Hx/Surgical Hx Maalox (PRN), MOM (PRN), Theragran Subjective Information Pt is a 79-year-old male admitted on 04/07 d/t psychosis . Pt is eating an estimated 80 % of meals x 3 days Per Meal/ Nutrition Activity Record. Dietary is currently providing an estimated 2300 kcals and 115 gm Pro, per Pt PO intake this is providing an estimated 1840 kcals and 90 gm Pro to meet 100% kcal and 100+% Pro needs. Visited pt around 2pm today, pt stated he ate all of his lunch and he has no complaints with the food. Pt stated he was taking vitamin B12 at his previous facility and was instructed it would be better to be taken off of it- currently not taking B12 at this facility. Anthropometrics HT: 62 WT: 157 LB (71.36 kg) BMI: 20.16 (Normal) GI/ Skin Integrity GI: WNL, Soft, Flat BM: Not noted I/O: 1360/1 (+1359) Skin: WNL, Intact Saleem: 18 Diet Order: Cardiac, chopped Estimated Energy Needs: ( Geriatric, CBW) 6086-0655 kcals (25-30 kcals/ kg) 70-85g Pro (1.0-1.2 g/kg) 7801-8944 ml (25-30 ml/kg) Current Diet Order/ Nutrition Support Cardiac, chopped Pertinent Medications Maalox (PRN), MOM (PRN), Theragran Pertinent Labs 04/06: K 3.3, Glucose 145, BUN/ Cr 24/1.3, Vitamin B12 1061 Nutritional Hx/Data Height 1.88 m Height (Calculated Centimeters) 188.0 Current Weight (lbs) 71.214 kg Weight (Calculated Kilograms) 71.2 Weight (Calculated Grams) 44126.0 [place] Body Weight 190 LB (86.36 kg) % [place] Body Weight 83 Body Mass Index (BMI) 20.1 Weight Status Approriate GI Symptoms Skin Integrity/Comment: Skin: WNL, Intact Saleem: 18 Current %PO Good (75-100%) Estimated Nutritional Goals BEE in Kcals: Using Current wt Calories/Kcals/Kg 25-30 Kcals Calculated 2096-6705 Protein: Using Current wt Protein g/k.0-1.2 Protein Calculated 70-85 Fluid: ml 6232-4248 ml (25-30 ml/kg) Nutritional Problem No current Nutrition Prob Problem No nutrition diagnosis at this time. Etiology N/A Signs/Symptoms: N/A Malnutrition Related to Morbid Obesity Malnutrition related to morbid obesity No Intervention/Recommendation Comments Continue Cardiac, chopped diet as tolerated. Expected Outcomes/Goals Expected Outcomes/Goals 1. PO intake to continue to meet> 75% of estimated nutritional needs. 2. Monitor PO intake, wt, nutrition related labs, and skin integrity. 3. F/U as low risk in 7-10 days, 04/18-04/21
--- NOTE | 2019-04-18 23:27 | Progress Notes ---
DATE: 04/18/2019 SUBJECTIVE: Staff was spoken to. The patient is interviewed. Mood is noted to be irritable. Affect is constricted. The patient is still confused and disoriented. The patient has been plugging the toilets. The patient needs to be redirected. The patient has paranoid delusions. The patient has been placed on the Depakote. The impulsivity is still a concern with the patient. No side effects to the medications are noted. ASSESSMENT: The patient is still psychotic. PLAN: To continue the patient with the supportive therapy, encouraged the patient to verbalize the concerns rather than to act out. JOB# [id number]
[2019-04-19] MEDS: Multivitamin Tab PO SCH (08:26)
--- NOTE | 2019-04-20 00:03 | Progress Notes ---
DATE: 04/19/2019 PSYCHIATRIC PROGRESS NOTE SUBJECTIVE: Staff was spoken to. The patient is interviewed. Mood is noted to be irritable. Affect is constricted. The patient's insight and judgment at this time are noted to be still impaired. His aggressive behavior seems to be coming under control, but the patient is still demented, needs to be redirected. Coping skills at this time are noted to be still poor. The patient is not able to care for self. ASSESSMENT: The patient is currently on haloperidol and Depakote and has been able to tolerate the medications. No side effects to the medications are noted. PLAN: To continue the patient with the current medications and follow. JOB# [id number]
[2019-04-20] MEDS: Multivitamin Tab PO SCH (08:22)
--- NOTE | 2019-04-20 14:19 | Internal Medicine Prog Note ---
Internal Medicine Subjective - Subjective Service Date: 04/19/19 Patient seen and examined:: without staff (HE IS DOING BETTER) Patient is:: awake, non-verbal, in bed, confused Per staff patient has:: no adverse event Internal Medicine Objective - Physical Exam Vitals and I&O: Vital Signs Temp 97.2 F 04/19/19 06:10 Pulse 61 04/19/19 06:10 Resp 18 04/19/19 08:00 BP 127/66 04/19/19 06:10 Pulse Ox 96 04/19/19 06:10 Intake & Output 04/18/19 04/19/19 04/19/19 18:59 06:59 18:59 Intake Total 1000 240 Balance 1000 240 Intake: Oral 1000 240 Other: # Voids 4 1 # Bowel Movements 1 Active Medications: Current Medications Acetaminophen (Tylenol) 650 mg PO Q4HR PRN PRN Reason: Mild Pain (Scale 1-3) Stop: 06/06/19 11:47 Acetaminophen (Tylenol) 650 mg PO Q4H PRN PRN Reason: TEMP ABOVE 100 Stop: 06/06/19 12:35 Al Hydrox/Mg Hydrox/Simethicone (Maalox) 30 ml PO Q4HR PRN PRN Reason: GI DISTRESS Stop: 06/06/19 11:47 Divalproex Sodium (Depakote Dr) 250 mg PO Q12HR VALENTÍN; Protocol Stop: 06/16/19 20:59 Last Admin: 04/19/19 08:26 Dose: 250 mg Haloperidol (Haldol) 1 mg PO BID VALENTÍN; Protocol Stop: 06/12/19 08:59 Last Admin: 04/19/19 08:26 Dose: 1 mg Lorazepam (Ativan) 0.5 mg PO Q6HR PRN; Protocol PRN Reason: Anxiety Stop: 06/06/19 11:58 Last Admin: 04/16/19 08:52 Dose: 0.5 mg Magnesium Hydroxide (Milk Of Magnesia) 30 ml PO HS PRN PRN Reason: Constipation Multivitamins/Vitamin C (Theragran) 1 tab PO DAILY VALENTÍN Stop: 06/07/19 08:59 Last Admin: 04/19/19 08:26 Dose: 1 tab Zolpidem Tartrate (Ambien) 5 mg PO HS PRN PRN Reason: Insomnia Stop: 06/06/19 11:47 Last Admin: 04/16/19 21:31 Dose: 5 mg General: demented HEENT: NC/AT, PERRLA, EOMI, anicteric sclerae, throat clear Neck: Supple, No JVD, No thyromegaly, +2 carotid pulse wo bruit, No LAD Lungs: CTAB Cardiovascular: RRR, Normal S1, Normal S2, without murmur Abdomen: soft, non-tender, non-distended Neurological: no change Internal Medicine Assmt/Plan - Assessment Assessment: 1.HTN. 2.DJD. 3.DEMENTIA. 4.PSYCHOSIS - Plan Plan: CONTINUE ON CURRENT MEDICATION AND DIET Nutritional Asmnt/Malnutr-PDOC - Dietary Evaluation Malnutrition Findings (Please click <Entered> for more info): Nutritional Asmnt/Malnutrition Start: 04/11/19 15: 34 Text: Status: Complete Freq: Protocol: Document 04/11/19 15:34 BIPIN (Rec: 04/11/19 15:37 BIPIN [email or web address]) Nutritional Asmnt/Malnutrition Patient General Information Nutritional Screening Moderate Risk Diagnosis Psychosis Pertinent Medical Hx/Surgical Hx Maalox (PRN), MOM (PRN), Theragran Subjective Information Pt is a 79-year-old male admitted on 04/07 d/t psychosis . Pt is eating an estimated 80 % of meals x 3 days Per Meal/ Nutrition Activity Record. Dietary is currently providing an estimated 2300 kcals and 115 gm Pro, per Pt PO intake this is providing an estimated 1840 kcals and 90 gm Pro to meet 100% kcal and 100+% Pro needs. Visited pt around 2pm today, pt stated he ate all of his lunch and he has no complaints with the food. Pt stated he was taking vitamin B12 at his previous facility and was instructed it would be better to be taken off of it- currently not taking B12 at this facility. Anthropometrics HT: 62 WT: 157 LB (71.36 kg) BMI: 20.16 (Normal) GI/ Skin Integrity GI: WNL, Soft, Flat BM: Not noted I/O: 1360/1 (+1359) Skin: WNL, Intact Saleem: 18 Diet Order: Cardiac, chopped Estimated Energy Needs: ( Geriatric, CBW) 5745-7468 kcals (25-30 kcals/ kg) 70-85g Pro (1.0-1.2 g/kg) 9248-5304 ml (25-30 ml/kg) Current Diet Order/ Nutrition Support Cardiac, chopped Pertinent Medications Maalox (PRN), MOM (PRN), Theragran Pertinent Labs 04/06: K 3.3, Glucose 145, BUN/ Cr 24/1.3, Vitamin B12 1061 Nutritional Hx/Data Height 1.88 m Height (Calculated Centimeters) 188.0 Current Weight (lbs) 71.214 kg Weight (Calculated Kilograms) 71.2 Weight (Calculated Grams) 63742.0 [place] Body Weight 190 LB (86.36 kg) % [place] Body Weight 83 Body Mass Index (BMI) 20.1 Weight Status Approriate GI Symptoms Skin Integrity/Comment: Skin: WNL, Intact Saleem: 18 Current %PO Good (75-100%) Estimated Nutritional Goals BEE in Kcals: Using Current wt Calories/Kcals/Kg 25-30 Kcals Calculated 8462-1120 Protein: Using Current wt Protein g/k.0-1.2 Protein Calculated 70-85 Fluid: ml 7171-6374 ml (25-30 ml/kg) Nutritional Problem No current Nutrition Prob Problem No nutrition diagnosis at this time. Etiology N/A Signs/Symptoms: N/A Malnutrition Related to Morbid Obesity Malnutrition related to morbid obesity No Intervention/Recommendation Comments Continue Cardiac, chopped diet as tolerated. Expected Outcomes/Goals Expected Outcomes/Goals 1. PO intake to continue to meet> 75% of estimated nutritional needs. 2. Monitor PO intake, wt, nutrition related labs, and skin integrity. 3. F/U as low risk in 7-10 days, 04/18-04/21
--- NOTE | 2019-04-20 14:19 | Internal Medicine Prog Note ---
Internal Medicine Subjective - Subjective Service Date: 04/20/19 Patient seen and examined:: without staff (HE IS DOING BETTER) Patient is:: awake, non-verbal, in bed, confused Per staff patient has:: no adverse event Internal Medicine Objective - Physical Exam Vitals and I&O: Vital Signs Temp 97.2 F 04/20/19 06:15 Pulse 62 04/20/19 06:15 Resp 20 04/20/19 06:15 BP 128/52 04/20/19 06:15 Pulse Ox 100 04/20/19 06:15 Intake & Output 04/19/19 04/20/19 04/20/19 18:59 06:59 18:59 Intake Total 950 360 Balance 950 360 Intake: Oral 950 360 Other: # Voids 3 2 # Bowel Movements 1 0 Active Medications: Current Medications Acetaminophen (Tylenol) 650 mg PO Q4HR PRN PRN Reason: Mild Pain (Scale 1-3) Stop: 06/06/19 11:47 Acetaminophen (Tylenol) 650 mg PO Q4H PRN PRN Reason: TEMP ABOVE 100 Stop: 06/06/19 12:35 Al Hydrox/Mg Hydrox/Simethicone (Maalox) 30 ml PO Q4HR PRN PRN Reason: GI DISTRESS Stop: 06/06/19 11:47 Divalproex Sodium (Depakote Dr) 250 mg PO Q12HR VALENTÍN; Protocol Stop: 06/16/19 20:59 Last Admin: 04/20/19 08:22 Dose: 250 mg Haloperidol (Haldol) 1 mg PO BID VALENTÍN; Protocol Stop: 06/12/19 08:59 Last Admin: 04/20/19 08:22 Dose: 1 mg Lorazepam (Ativan) 0.5 mg PO Q6HR PRN; Protocol PRN Reason: Anxiety Stop: 06/06/19 11:58 Last Admin: 04/16/19 08:52 Dose: 0.5 mg Magnesium Hydroxide (Milk Of Magnesia) 30 ml PO HS PRN PRN Reason: Constipation Multivitamins/Vitamin C (Theragran) 1 tab PO DAILY VALENTÍN Stop: 06/07/19 08:59 Last Admin: 04/20/19 08:22 Dose: 1 tab Zolpidem Tartrate (Ambien) 5 mg PO HS PRN PRN Reason: Insomnia Stop: 06/06/19 11:47 Last Admin: 04/16/19 21:31 Dose: 5 mg General: demented HEENT: NC/AT, PERRLA, EOMI, anicteric sclerae, throat clear Neck: Supple, No JVD, No thyromegaly, +2 carotid pulse wo bruit, No LAD Lungs: CTAB Cardiovascular: RRR, Normal S1, Normal S2, without murmur Abdomen: soft, non-tender, non-distended Neurological: no change Internal Medicine Assmt/Plan - Assessment Assessment: 1.HTN. 2.DJD. 3.DEMENTIA. 4.PSYCHOSIS - Plan Plan: CONTINUE ON CURRENT MEDICATION AND DIET Nutritional Asmnt/Malnutr-PDOC - Dietary Evaluation Malnutrition Findings (Please click <Entered> for more info): Nutritional Asmnt/Malnutrition Start: 04/11/19 15: 34 Text: Status: Complete Freq: Protocol: Document 04/11/19 15:34 BIPIN (Rec: 04/11/19 15:37 BIPIN [email or web address]) Nutritional Asmnt/Malnutrition Patient General Information Nutritional Screening Moderate Risk Diagnosis Psychosis Pertinent Medical Hx/Surgical Hx Maalox (PRN), MOM (PRN), Theragran Subjective Information Pt is a 79-year-old male admitted on 04/07 d/t psychosis . Pt is eating an estimated 80 % of meals x 3 days Per Meal/ Nutrition Activity Record. Dietary is currently providing an estimated 2300 kcals and 115 gm Pro, per Pt PO intake this is providing an estimated 1840 kcals and 90 gm Pro to meet 100% kcal and 100+% Pro needs. Visited pt around 2pm today, pt stated he ate all of his lunch and he has no complaints with the food. Pt stated he was taking vitamin B12 at his previous facility and was instructed it would be better to be taken off of it- currently not taking B12 at this facility. Anthropometrics HT: 62 WT: 157 LB (71.36 kg) BMI: 20.16 (Normal) GI/ Skin Integrity GI: WNL, Soft, Flat BM: Not noted I/O: 1360/1 (+1359) Skin: WNL, Intact Saleem: 18 Diet Order: Cardiac, chopped Estimated Energy Needs: ( Geriatric, CBW) 7544-4929 kcals (25-30 kcals/ kg) 70-85g Pro (1.0-1.2 g/kg) 3421-6081 ml (25-30 ml/kg) Current Diet Order/ Nutrition Support Cardiac, chopped Pertinent Medications Maalox (PRN), MOM (PRN), Theragran Pertinent Labs 04/06: K 3.3, Glucose 145, BUN/ Cr 24/1.3, Vitamin B12 1061 Nutritional Hx/Data Height 1.88 m Height (Calculated Centimeters) 188.0 Current Weight (lbs) 71.214 kg Weight (Calculated Kilograms) 71.2 Weight (Calculated Grams) 05712.0 [place] Body Weight 190 LB (86.36 kg) % [place] Body Weight 83 Body Mass Index (BMI) 20.1 Weight Status Approriate GI Symptoms Skin Integrity/Comment: Skin: WNL, Intact Saleem: 18 Current %PO Good (75-100%) Estimated Nutritional Goals BEE in Kcals: Using Current wt Calories/Kcals/Kg 25-30 Kcals Calculated 4536-4851 Protein: Using Current wt Protein g/k.0-1.2 Protein Calculated 70-85 Fluid: ml 6379-9397 ml (25-30 ml/kg) Nutritional Problem No current Nutrition Prob Problem No nutrition diagnosis at this time. Etiology N/A Signs/Symptoms: N/A Malnutrition Related to Morbid Obesity Malnutrition related to morbid obesity No Intervention/Recommendation Comments Continue Cardiac, chopped diet as tolerated. Expected Outcomes/Goals Expected Outcomes/Goals 1. PO intake to continue to meet> 75% of estimated nutritional needs. 2. Monitor PO intake, wt, nutrition related labs, and skin integrity. 3. F/U as low risk in 7-10 days, 04/18-04/21
--- NOTE | 2019-04-21 01:37 | Progress Notes ---
DATE: 04/20/2019 PSYCHIATRIC PROGRESS NOTE SUBJECTIVE: Staff was spoken to. The patient is interviewed. Mood is noted to be irritable. Affect is constricted. The patient is stating that everything is okay and we do not need to bother him. The patient has been pulling the bed sheets over his face and is not trying to continue the conversation. Insight and judgment at this time are noted to be still impaired. Impulse control seems to be improving. No major side effects to the medications are noted. The patient has been placed both on the haloperidol and Depakote and has been able to tolerate the medication. ASSESSMENT: The patient is still impulsive. PLAN: To continue the patient with the current medications and follow. [facility]# [id number]
[2019-04-21] MEDS: Multivitamin Tab PO SCH (08:41)
--- NOTE | 2019-04-21 12:11 | Progress Notes ---
DATE: 04/20/2019 PSYCHOLOGY PROGRESS NOTE SUBJECTIVE: The patient is seen by request from the staff as well as the attending physician with regard to the patient's irritability and depression. The patient is somewhat aloof and defensive. The patient stated that there was no need to bother him or discuss anything with him. The patient stated that he feels he has been in the hospital too long and that he was admitted here unfairly. Staff reports the patient has been taking the medications appropriately and eating, but not participating in any of the milieu therapy. Impulse control seems to be limited as well as compliance with care. The patient declined to continue the psychological interview and treatment that was offered. ASSESSMENT: Impulse control remains limited. The patient is noncompliant with the therapy aspect of his care here. The patient has limited insight into his illness and the reasons for his hospitalization. The patient is resistant and not acknowledging or becoming accountable with respect to his past behavior, which precipitated his admission here. PLAN: We will continue to encourage the patient to follow through with all aspects of his care and treatment. This medical writer will attempt to provide motivational enhancement with respect to the patient's compliance with his care and treatment and for the patient to begin to accept his circumstances as well as his discharge instructions. Follow up with both a psychiatrist and psychologist is recommended. [facility]# [id number] HILARIO
--- NOTE | 2019-04-21 15:52 | Progress Notes ---
DATE: 04/21/2019 SUBJECTIVE: Staff was spoken to. The patient is interviewed. Mood is noted to be anxious. The patient's insight and judgment are noted to be improving. Impulse control seems to be fair today. No side effects to the medications are noted. The patient has been able to be redirected. No side effects to the medications are noted. The patient's insight and judgment at this time are noted to be improving. ASSESSMENT: The patient seems to be coming down. PLAN: To continue the patient with the current medications. I encouraged the patient to verbalize the concerns rather than to act out. JOB# [id number]
--- NOTE | 2019-04-21 17:12 | Internal Medicine Prog Note ---
Internal Medicine Subjective - Subjective Service Date: 04/21/19 Patient seen and examined:: without staff (HE IS DOING WELL) Patient is:: awake, non-verbal, in bed, confused Per staff patient has:: no adverse event Internal Medicine Objective - Physical Exam Vitals and I&O: Vital Signs Temp 98.1 F 04/21/19 14:00 Pulse 51 04/21/19 14:00 Resp 20 04/21/19 14:00 BP 118/65 04/21/19 14:00 Pulse Ox 98 04/21/19 14:00 Intake & Output 04/20/19 04/21/19 04/21/19 18:59 06:59 18:59 Intake Total 1500 240 Balance 1500 240 Intake: Oral 1500 240 Other: # Voids 3 3 # Bowel Movements 0 0 Active Medications: Current Medications Acetaminophen (Tylenol) 650 mg PO Q4HR PRN PRN Reason: Mild Pain (Scale 1-3) Stop: 06/06/19 11:47 Acetaminophen (Tylenol) 650 mg PO Q4H PRN PRN Reason: TEMP ABOVE 100 Stop: 06/06/19 12:35 Al Hydrox/Mg Hydrox/Simethicone (Maalox) 30 ml PO Q4HR PRN PRN Reason: GI DISTRESS Stop: 06/06/19 11:47 Divalproex Sodium (Depakote Dr) 250 mg PO Q12HR VALENTÍN; Protocol Stop: 06/16/19 20:59 Last Admin: 04/21/19 08:41 Dose: 250 mg Haloperidol (Haldol) 1 mg PO BID VALENTÍN; Protocol Stop: 06/12/19 08:59 Last Admin: 04/21/19 16:29 Dose: 1 mg Lorazepam (Ativan) 0.5 mg PO Q6HR PRN; Protocol PRN Reason: Anxiety Stop: 06/06/19 11:58 Last Admin: 04/16/19 08:52 Dose: 0.5 mg Magnesium Hydroxide (Milk Of Magnesia) 30 ml PO HS PRN PRN Reason: Constipation Multivitamins/Vitamin C (Theragran) 1 tab PO DAILY VALENTÍN Stop: 06/07/19 08:59 Last Admin: 04/21/19 08:41 Dose: 1 tab Zolpidem Tartrate (Ambien) 5 mg PO HS PRN PRN Reason: Insomnia Stop: 06/06/19 11:47 Last Admin: 04/16/19 21:31 Dose: 5 mg General: demented HEENT: NC/AT, PERRLA, EOMI, anicteric sclerae, throat clear Neck: Supple, No JVD, No thyromegaly, +2 carotid pulse wo bruit, No LAD Lungs: CTAB Cardiovascular: RRR, Normal S1, Normal S2, without murmur Abdomen: soft, non-tender, non-distended Neurological: no change Internal Medicine Assmt/Plan - Assessment Assessment: 1.HTN. 2.DJD. 3.DEMENTIA. 4.PSYCHOSIS - Plan Plan: CONTINUE ON CURRENT MEDICATION AND DIET Nutritional Asmnt/Malnutr-PDOC - Dietary Evaluation Malnutrition Findings (Please click <Entered> for more info): Nutritional Asmnt/Malnutrition Start: 04/11/19 15: 34 Text: Status: Complete Freq: Protocol: Document 04/11/19 15:34 BIPIN (Rec: 04/11/19 15:37 BIPIN [id number]) Nutritional Asmnt/Malnutrition Patient General Information Nutritional Screening Moderate Risk Diagnosis Psychosis Pertinent Medical Hx/Surgical Hx Maalox (PRN), MOM (PRN), Theragran Subjective Information Pt is a 79-year-old male admitted on 04/07 d/t psychosis . Pt is eating an estimated 80 % of meals x 3 days Per Meal/ Nutrition Activity Record. Dietary is currently providing an estimated 2300 kcals and 115 gm Pro, per Pt PO intake this is providing an estimated 1840 kcals and 90 gm Pro to meet 100% kcal and 100+% Pro needs. Visited pt around 2pm today, pt stated he ate all of his lunch and he has no complaints with the food. Pt stated he was taking vitamin B12 at his previous facility and was instructed it would be better to be taken off of it- currently not taking B12 at this facility. Anthropometrics HT: 62 WT: 157 LB (71.36 kg) BMI: 20.16 (Normal) GI/ Skin Integrity GI: WNL, Soft, Flat BM: Not noted I/O: 1360/1 (+1359) Skin: WNL, Intact Saleem: 18 Diet Order: Cardiac, chopped Estimated Energy Needs: ( Geriatric, CBW) 1058-6227 kcals (25-30 kcals/ kg) 70-85g Pro (1.0-1.2 g/kg) 6503-3765 ml (25-30 ml/kg) Current Diet Order/ Nutrition Support Cardiac, chopped Pertinent Medications Maalox (PRN), MOM (PRN), Theragran Pertinent Labs 04/06: K 3.3, Glucose 145, BUN/ Cr 24/1.3, Vitamin B12 1061 Nutritional Hx/Data Height 1.88 m Height (Calculated Centimeters) 188.0 Current Weight (lbs) 71.214 kg Weight (Calculated Kilograms) 71.2 Weight (Calculated Grams) 83099.0 [place] Body Weight 190 LB (86.36 kg) % [place] Body Weight 83 Body Mass Index (BMI) 20.1 Weight Status Approriate GI Symptoms Skin Integrity/Comment: Skin: WNL, Intact Saleem: 18 Current %PO Good (75-100%) Estimated Nutritional Goals BEE in Kcals: Using Current wt Calories/Kcals/Kg 25-30 Kcals Calculated 1004-5850 Protein: Using Current wt Protein g/k.0-1.2 Protein Calculated 70-85 Fluid: ml 2643-0195 ml (25-30 ml/kg) Nutritional Problem No current Nutrition Prob Problem No nutrition diagnosis at this time. Etiology N/A Signs/Symptoms: N/A Malnutrition Related to Morbid Obesity Malnutrition related to morbid obesity No Intervention/Recommendation Comments Continue Cardiac, chopped diet as tolerated. Expected Outcomes/Goals Expected Outcomes/Goals 1. PO intake to continue to meet> 75% of estimated nutritional needs. 2. Monitor PO intake, wt, nutrition related labs, and skin integrity. 3. F/U as low risk in 7-10 days, 04/18-04/21
[2019-04-22] MEDS: Multivitamin Tab PO SCH (08:24)
--- NOTE | 2019-04-23 10:52 | Progress Notes ---
DATE: 04/22/2019 PSYCHOLOGY PROGRESS NOTE SUBJECTIVE: The patient is seen and spoken with. The patient did not respond initially to the questions from this provider. The patient seems anxious. Staff reports the patient has been compliant with his medication and is redirectable. No side effects to medications are noted and the patient's insight and judgment have remained the same. ASSESSMENT: The patient appears to be stabilizing. The patient declined to respond to psychotherapeutic interventions or to acknowledge coping strategies being offered. The patient was initially diagnosed with schizophrenia, chronic paranoid type. Staff reports the patient has not been verbalizing any paranoid delusions. PLAN: Staff reports the patient is most likely discharging today. This script writer offered coping strategies as well as reality testing and reality integration. The patient was encouraged to stay compliant with all aspects of his care and treatment and to be able to verbalize his concerns versus acting out and resisting further treatment. Recommendation to follow up with Psychiatry and Psychology was suggested. No followup is indicated. The patient is most likely discharging today. [facility]# [id number] HILARIO
--- NOTE | 2019-04-23 10:56 | Discharge Summary ---
DATE OF DISCHARGE: 04/22/2019 IDENTIFYING DATA: The patient is a 79-year-old -[place] male, living by himself. JUSTIFICATION OF HOSPITALIZATION: The patient is admitted on 5150 as a danger to self and being gravely disabled. DIAGNOSES AT THE TIME OF ADMISSION: AXIS I: Schizophrenia, chronic, paranoid type. AXIS IB: Dementia and behavioral change secondary trait. AXIS II: None. AXIS III: As per Dr. Branch. HISTORY OF PRESENT ILLNESS: Please refer to the 04/07/2019 dictation done by me. Physical examination was done by Dr. Branch and blood work done at the time of the hospitalization has been reviewed by him. HOSPITAL COURSE AND RESPONSE TO TREATMENT: The patient has been observed on inpatient unit, provided with supportive psychotherapy. The patient's behavior has been a little bit disruptive. The patient has been taking the toilet tissue and plugging the toilets and the patient has been placed on haloperidol for his psychosis that was increased to 1 mg b.i.d. and the patient also has been placed on Depakote that was increased to 250 mg twice a day. With these medications, the patient has been observed and the patient became less irritable and the patient was finally discharged on 04/22/2019 with recommendation that he is going to be seeking treatment on an outpatient basis. MENTAL STATUS EXAMINATION AT THE TIME OF DISCHARGE: The patient's mood is noted to be anxious. Affect is appropriate. Not suicidal or homicidal. Insight and judgment are noted to be improving. Impulse control seems to be fair. Coping skills are also noted to be fair. The patient has been able to verbalize the concerns rather than to act out at the time of discharge. CONDITION AT THE TIME OF DISCHARGE: Noted to be stable. [facility]# [id number]
== END 2019-04-22 17:50 | DRG 885 ==
LOC: GERO 10:45
PROVIDERS: ADMIT Psychiatry & Neurology Psychiatry; ATTEND Psychiatry & Neurology Psychiatry
DX: F20.0 Paranoid schizophrenia (principal); F03.91 Unspecified dementia, unspecified severity, with behavioral disturbance; F29 Unspecified psychosis not due to a substance or known physiological condition; M19.90 Unspecified osteoarthritis, unspecified site; I10 Essential (primary) hypertension; E78.5 Hyperlipidemia, unspecified; E53.8 Deficiency of other specified B group vitamins; E55.9 Vitamin D deficiency, unspecified; Z91.19 Patient's noncompliance with other medical treatment and regimen; Z79.899 Other long term (current) drug therapy
CPT/HCPCS: 83036-90